=== PATIENT | male | born 1970 | race Caucasian/White ===

== ENCOUNTER 2017-08-24 21:00 | Inpatient (IN) | payer MEDICARE ==
[~2017-08-24] VITALS: Ht 180.3 cm; Wt 190.1 kg
[~2017-08-24 21:00] MED LIST: ACETAMINOPHEN650 M5 PO; ADVAIR 250-501 EACH INH; ATORVASTATIN CA40 MG PO; AUGMENTIN 875875 MG PO; BUSPIRONE HCL10 MG PO; CEFDINIR300 MG PO; CELEXA20 MG PO; CELEXA40 MG PO; CLARITIN10 MG PO; CLEOCIN HCL150 MG PO; COUMADIN 5 MG TA5 M1 PO; ENOXAPARIN100 MG/1 M SQ; FLEXERIL PO; FOLIC ACID1 MG PO; HUMIRA PSO40 MG/0.8 SQ; HYDROCHLOROTH12.5 M1 PO; HYDROCODON-ACE1 EAC7 PO; HYDROXYZINE HCL25 M1 PO; INCRUSE ELLI62.5 MCG IH; JANUMET XR 1001 EACH PO; K-TAB10 MEQ PO; KEFLEX500 MG PO; KETOCONAZOLE60 GM TP; LANTUS SOL100 UNIT/1 SUBQ; LASIX 40 MG TAB40 M2 PO; LEVAQUIN 500 M500 M2 PO; LISINOPRIL40 MG PO; MAGNESIUM OXID200 MG PO; METFORMIN HCL500 MG PO; METHOTREXATE 22.5 M1 PO; MINOCIN100 MG PO; NASONEX17 GM NASAL; NICOTINE TRANSD21 M1; NICOTINE TRANSD21 M1 TRANSDERM; OTHER MISCELL; PAXIL10 MG; PAXIL40 MG PO; PREDNISONE 10 M10 MG PO; PRILOSEC OTC20 MG PO; PROAIR HFA8.5 GM INH; PROTONIX40 M1 PO; SPIRIVA INH; SYMBICORT160 MCG/4. INH; TRAMADOL 50 MG50 MG PO; VENTOLIN HFA 1818 GM INH; VITAMIN D2000 UNIT PO; XANAX 0.25 MG0.25 MG PO; XANAX 0.5 MG0.5 M1 PO; XANAX 1 MG TABLE1 MG PO; XARELTO20 MG PO
[2017-08-24 21:07] VITALS: BP 135/67
[2017-08-24] MEDS ORDERED: CELEXA10 MG PO (21:16)
[2017-08-24 21:47] LABS: HEMATOCRIT 37.1 % (42.0-52.0); HEMOGLOBIN 12.2 gm/dL (14.0-18.0); MCH 30.2 pg (26.0-34.0); MCHC 32.8 g/dL (28.0-37.0); MCV 92.2 fL (80.0-100.0); MPV 9.5 fl. (7.2-11.1); NUCLEATED RBCS 0 /100WBC; PLATELET COUNT* 91 thou/uL (150-400); RBC 4.02 mil/uL (4.50-6.00); RDW-CV 15.6 % (10.5-14.5); WBC 13.8 thou/uL (4.0-11.0)
[2017-08-24 21:57] LABS: CALCIUM 8.5 mg/dL (8.5-10.1); CREATININE 1.7 mg/dL (0.6-1.3); POTASSIUM 4.2 mmol/L (3.5-5.1)
[2017-08-24 22:02] LABS: ALBUMIN 3.6 g/dL (3.4-5.0); TOTAL BILIRUBIN 1.2 mg/dL (<0.1-1.0); TOTAL PROTEIN 7.5 g/dL (6.4-8.2)
[2017-08-24 22:14] LABS: URINE BILIRUBIN NEGATIVE (Negative); URINE BLOOD NEGATIVE (Negative); URINE CLARITY CLEAR; URINE COLOR YELLOW; URINE GLUCOSE-RANDOM NEGATIVE (Negative); URINE KETONES NEGATIVE (Negative); URINE LEUKOCYTES-REFLEX NEGATIVE (Negative); URINE NITRITE-REFLEX NEGATIVE (Negative); URINE PROTEIN TRACE (Negative); URINE SPECIFIC GRAVITY 1.015 (1.005-1.030)
[2017-08-24 22:50] LABS: INR 1.3; PROTIME 12.2 Seconds (9.20-11.50)
[2017-08-24 23:16] LABS: ABSOLUTE LYMPHOCYTES 1.1 thou/uL (0.8-5.3); ABSOLUTE MONOCYTES 0.7 thou/uL (0.0-1.2); ANISOCYTOSIS Occasional; PLATELET ESTIMATE DECREASED; TOXIC GRANULATION 1+
--- NOTE | 2017-08-24 23:20 | NUR ---
NEW PATIENT FROM THE ER, PLEASANT, WALKER INTO ROOM AND BED BY SELF, IV FLUIDS AND ANTIBIOTICS INFUSING, ABD RED AND WARM, SHOWN CALL LIGHT AND BED CONTROLS, ON AT 5L/NC, WILL MONITOR
[2017-08-24 23:27] VITALS: BP 164/87
[2017-08-25 00:30] VITALS: BP 147/80
[2017-08-25] MEDS ORDERED: VITAMIN D1000 UNI1 PO (00:48)
--- NOTE | 2017-08-25 05:21 | NUR ---
PT SLEPT AT INTERVALS SINCE ADMISSION, ANTIBIOTICS GIVEN AND FLUIDS INFUSED, UP AD ALAN, ON 5L/NC WITH EXTENSION TUBING IN THE BATHROOM, PLEASANT, WORE BIPAP WHILE IN BED, CALL LIGHT IN REACH, WILL CONTINUE TO MONITOR
[2017-08-25 09:15] VITALS: BP 137/58
--- NOTE | 2017-08-25 12:42 | NUR ---
Pt is A&O. Resides at home with his son. Independent with ADLs, drove himself to the hospital. Pt wears home o2, provided through [employer], Pt has a tank in the room for dc. Pt sleeps with a bipap and has a neb. No hx of HH or SNF. Supportive family that is invovled in POC. Pt's goal is to return home once medically stable for dc. Following.
--- NOTE | 2017-08-25 16:25 | NUR ---
PATIENT UP AROUND ROOM AD ALAN WITHOUT DIFFICULTY. IV SL THIS SHIFT, SCHED ABX REMAIN. 02 6L NC REMAINS IN PLACE. ID CONS PLACED, WILL SEE TOMORROW. ABD REMAINS RED AND FIRM. PATIENT REQUESTING TO GO HOME THIS EVENING STATING HE HAS NO ONE TO TAKE CARE OF HIS ANIMALS. DR. GORDILLO NOTIFIED BUT STATED PATIENT WAS NOT GOING TO BE DISCHARGED. PATIENT AWARE AND WILL TRY FAMILY AGAIN LATER.
[2017-08-25 20:15] VITALS: BP 133/77
[2017-08-25 23:30] VITALS: BP 134/76
--- NOTE | 2017-08-26 04:57 | NUR ---
PT SLEPT AT INTERVALS DURING THE NIGHT, UP SBA/AD ALAN TO THE BATHROOM, REMAINS ON 02 AT 5-6L/NC, CPAP ON WHILE SLEEPING, IV ANTIBIOTICS GIVEN, PLEASANT, CALL LIGHT IN REACH, WILL CONTINUE TO MONITOR
[2017-08-26 08:40] VITALS: BP 143/68
--- NOTE | 2017-08-26 16:19 | NUR ---
PATIENT STATING ALL SHIFT HE WANTED TO BE DISCHARGED. PATIENT INFORMED THAT PER ID'S NOTE THIS AM THAT PATIENT WOULD REMAIN ON VANCOMYCIN AND ZOSYN WOULD SOON BE DC'D POSSIBLY. PHOTO TAKEN OF ABD PER PROTOCOL. IV ABX REMAINS INFUSING. PATIENT REMAINS ON 6L NC. PATIENT STATES HE FEELS ABD REDNESS AND SWELLING IS BETTER.
[2017-08-26 16:27] VITALS: BP 133/91
--- NOTE | 2017-08-27 05:42 | NUR ---
PT UP AD ALAN IN ROOM WITH 02 WITHOUT DIFFICULTY. RAC SL, ABX GIVEN ORDERED. TOOK A SHOWER AT HS LAST NIGHT. CPAP ON WHILE SLEEPING OVERNIGHT. HS ACCUCHECK 136, NO INSULIN GIVEN. NO LABS THIS MORNING. ABD OBESE WITH PENDULOUS PANNUS, RED AND SL WARM TO TOUCH. PSORIASIS PATCHES PRESENT SCATTTERED OVER BODY. ABLE TO USE CALL LITE AND MAKE NEEDS KNOWN. HOPEFUL FOR DISCHARGE HOME TODAY.
[2017-08-27 08:15] VITALS: BP 116/59
--- NOTE | 2017-08-27 09:18 | CON ---
[address] [address] CONSULTATION Name: DEBBIE NARANJO Room: [address] IN M.R.#: [id number] Admission: 08/24/17 Attend Phys: Dori Witt Discharge: Date of : 70 Report #: [id number] THIS REPORT FOR: //name// CC: FAM physician/PCP Vitaly Pradhan DATE OF SERVICE: 08/26/2017 ATTENDING PHYSICIAN: Vitaly Pradhan MD CONSULTATION REQUESTED BY: Ananth Arriaza MD REASON FOR CONSULTATION: Abdominal wall cellulitis. HISTORY OF PRESENT ILLNESS: The patient is a 47-year-old morbidly obese white man with longstanding history of severe psoriasis and previous episode of abdominal wall cellulitis, possibly secondary to psoriasis. The patient tells me he is feeling better. Redness and pain of abdominal wall has improved. PAST MEDICAL HISTORY: Diabetes mellitus. Morbid obesity. Obstructive sleep apnea. Severe psoriasis. DRUG ALLERGIES: None listed. MEDICATIONS: The patient is currently on treatment with vancomycin 1250 mg IV every 8 hours, Zosyn 3.375 grams IV every 8 hours. He is also receiving treatment with topical nicotine patches, lisinopril, atorvastatin, budesonide, rivaroxaban, KCl, furosemide, citalopram, albuterol inhalation treatment, buspirone. He has BiPAP at night time for obstructive sleep apnea. SOCIAL HISTORY: The patient had received Humira in the past, but cause him to be immunosuppressed. He did receive another treatment for his plaque psoriasis which made all the plaques fall off and clear. Somehow his insurance is not paying for this now. SOCIAL HISTORY: See H and P, old records. FAMILY HISTORY: See H and P, old records. REVIEW OF SYSTEMS: As above and see H and P. PHYSICAL EXAMINATION: GENERAL: Well-developed, morbidly obese white man. VITAL SIGNS: Temperature maximum 100.4, pulse 62, respirations 16, BP 134/76, height 5 feet 11 inches, weight 419 pounds. HEENMT: Head normocephalic, atraumatic. Mouth: [place] [address] CONSULTATION Name: DEBBIE NARANJO Room: [address] IN [facility].#: [id number] Admission: 08/24/17 Attend Phys: Dori Witt Discharge: Date of : 70 Report #: [id number] NECK: Supple. SKIN: Extensive lesions of psoriasis. LUNGS: Clear. HEART: S1, S2. ABDOMEN: Morbidly obese with extensive lesions of cellulitis of the abdominal wall and some lesions of plaque psoriasis. GENITALIA AND RECTAL: Deferred. EXTREMITIES: Reveal stasis dermatitis and psoriasis lesions on sites. NEUROLOGIC: Grossly within normal limits. LABORATORY DATA: Sodium 138, potassium 4.2, BUN 14, creatinine 1.7, glucose 128, albumin 3.6. Protime 12.3. WBC 13.8, hemoglobin 12.2, platelets 91,000. Urinalysis revealed trace protein, otherwise negative. MICROBIOLOGY DATA: Blood cultures were obtained on admission and they remained negative so far. ASSESSMENT: 1. Abdominal wall cellulitis. 2. Plaque psoriasis. 3. Morbid obesity. 4. Obstructive sleep apnea. SUGGESTIONS: Continue treatment with vancomycin since the likely source and culprit for these cellulitic changes is either the streptococcus or Staphylococcus. Could possibly discontinue Zosyn. Dr. Arriaza, thank you for requesting my suggestions in the care of your patient. <ELECTRONICALLY SIGNED> By: Juanito Bardales MD 08/27/17 0918 0833 1141Guillermivy Bardales MD /nt
[2017-08-27] MEDS ORDERED: NYAMYC15 GM TOP (10:41)
[2017-08-27 11:32] LABS: HEMATOCRIT 33.1 % (42.0-52.0); MCH 30.6 pg (26.0-34.0); MCHC 33.1 g/dL (28.0-37.0); MCV 92.5 fL (80.0-100.0); MPV 10.9 fl. (7.2-11.1); RBC 3.57 mil/uL (4.50-6.00); RDW-CV 15.7 % (10.5-14.5); WBC 7.2 thou/uL (4.0-11.0)
[2017-08-27 11:47] LABS: CALCIUM 8.5 mg/dL (8.5-10.1); CREATININE 1.3 mg/dL (0.6-1.3); MAGNESIUM 1.7 mg/dL (1.8-2.4)
--- NOTE | 2017-08-27 12:01 | NUR ---
Nutrition: Consult received for "wound." Pt is obese, Wt 419#. Eating CHO controlled diet well. Wants to go home. RX: lisinopril, lasix, albuterol. BG 115-218, albumin 3.6. General abd cellulitis. Pt discharging today. No nutritional interventions needed before discharge.
[2017-08-27 13:04] VITALS: BP 116/59
[2017-08-27 14:30] VITALS: BP 116/59
--- NOTE | 2017-08-27 14:51 | NUR ---
PT VSS THIS SHIFT. PT UP AD ALAN THIS SHIFT. PT TOLERATING 5L O2 THIS SHIFT AND APPROPRIATELY USES CPAP THIS SHIFT. HOURLY ROUNDING MAINTAINED. PT PAIN IS TOLERABLE THIS SHIFT. PT VERBALIZED UNDERSTANDING OF DISCHARGE MEDICATIONS AND INSTRUCTIONS. PT GIVEN 3 RX AT DISCHARGE. PT TAKEN VIA WHEELCHAIR UPON DISCHARGE.
[2017-12-22] MEDS ORDERED: ALPRAZOLAM 0.50.5 M1 PO (01:47)
== END 2017-08-27 14:30 | disposition home or self-care (01) | DRG 602 ==
LOC: M.ERS 21:00 → M.3W 22:23 → M.TBA-ER 22:23 → M.3W 23:43
PROVIDERS: Internal Medicine; Nurse Practitioner Family; ADMIT Internal Medicine
PROC: 5A09357 Assistance with Respiratory Ventilation, Less than 24 Consecutive Hours, Continuous Positive Airway Pressure (ICD-10-PCS; principal; 2017-08-24)
DX: L03.311 Cellulitis of abdominal wall (principal); N17.0 Acute kidney failure with tubular necrosis; Z68.43 Body mass index [BMI] 50.0-59.9, adult; R65.10 Systemic inflammatory response syndrome (SIRS) of non-infectious origin without acute organ dysfunction; J96.10 Chronic respiratory failure, unspecified whether with hypoxia or hypercapnia; I12.9 Hypertensive chronic kidney disease with stage 1 through stage 4 chronic kidney disease, or unspecified chronic kidney disease; N18.2 Chronic kidney disease, stage 2 (mild); E11.9 Type 2 diabetes mellitus without complications; L40.0 Psoriasis vulgaris; J44.9 Chronic obstructive pulmonary disease, unspecified; F41.9 Anxiety disorder, unspecified; F32.9 Major depressive disorder, single episode, unspecified; E78.00 Pure hypercholesterolemia, unspecified; E66.01 Morbid (severe) obesity due to excess calories; G47.33 Obstructive sleep apnea (adult) (pediatric); Z86.711 Personal history of pulmonary embolism; Z86.718 Personal history of other venous thrombosis and embolism; Z79.899 Other long term (current) drug therapy; Z99.81 Dependence on supplemental oxygen

== ENCOUNTER 2017-12-10 02:49 | Emergency (ER) | payer MEDICARE ==
[~2017-12-10] VITALS: Ht 180.3 cm; Wt 174.6 kg
[~2017-12-10 02:49] MED LIST changes: +CELEXA10 MG PO; +NYAMYC15 GM TOP; +VITAMIN D1000 UNI1 PO
[2017-12-10 02:58] VITALS: BP 182/93
[2017-12-10] MEDS ORDERED: ESCITALOPRAM OX20 MG PO (03:05)
[2017-12-10] MEDS ORDERED: NEURONTIN 300300 M1 PO (03:06)
[2017-12-10] MEDS ORDERED: AMOXICILLIN875 MG PO (03:11)
[2017-12-10] MEDS ORDERED: NORCO 7.5-3251 EACH PO (03:11)
[2017-12-22] MEDS ORDERED: ALPRAZOLAM 0.50.5 M1 PO (01:47)
== END 2017-12-10 03:19 | disposition home or self-care (01) ==
LOC: M.ERS 02:49
DX: K02.9 Dental caries, unspecified (principal); L40.9 Psoriasis, unspecified; J44.9 Chronic obstructive pulmonary disease, unspecified; G47.30 Sleep apnea, unspecified; F41.9 Anxiety disorder, unspecified; F32.9 Major depressive disorder, single episode, unspecified; E11.9 Type 2 diabetes mellitus without complications; E78.00 Pure hypercholesterolemia, unspecified; F17.210 Nicotine dependence, cigarettes, uncomplicated

== ENCOUNTER 2018-03-07 10:54 | Inpatient (IN) | payer MEDICARE ==
[~2018-03-07] VITALS: Ht 180.3 cm; Wt 179.6 kg
--- NOTE | ~2018-03-07 | CON ---
[address] [address] CONSULTATION Name: DEBBIE NARANJO Room: [address] IN M.R.#: [id number] Admission: 03/07/18 Attend Phys: Danilo Stark MD Discharge: Date of : 70 Report #: [id number] THIS REPORT FOR: //name// CC: SHELBI Stark Physician staff DATE OF SERVICE: 03/08/2018 PRIMARY CARE DOCTOR: At [facility]. CHIEF COMPLAINT: Chest pain and abnormal troponin. HISTORY OF PRESENT ILLNESS: The patient is a 48-year-old man with a history of chronic coagulopathy and COPD, who presented with severe onset of resting chest discomfort. In the Emergency Room, his EKG demonstrated a nonspecific flattening of his ST segments without ST segment elevation, but because of his risk factors which are significant, he was admitted. His subsequent cardiac troponin levels were abnormal and peaked at 11. He had remained chest pain free since admission. This morning, he is chest pain free. He has chronic shortness of breath and has an oxygen requirement. He is an active smoker and has COPD and uses oxygen. He has no documented history of heart disease, but again has numerous cardiovascular risk factors including coagulopathy, active smoking, high blood pressure, diabetes mellitus type 2 as well as a lipid status, which is not known. He receives most of his care at [facility]. PAST MEDICAL HISTORY: He was diagnosed with a coagulopathy as he has 2 separate episodes of DVT and pulmonary embolus. He is anticoagulated with Xarelto. His last dose was yesterday afternoon. He has a history of chronic cellulitis. He is morbidly obese. He has a history of a stress test at [facility], he thinks more than 2 years ago, which was reportedly normal. He has hypertension and in the past has had hypertensive urgency episodes. He has COPD. He has had cellulitis in the past. HOME MEDICATIONS: Include atorvastatin 80 mg daily, lisinopril 40 mg daily, Lasix 40 mg alternating 40 and 80 mg daily, metformin 500 mg p.o. b.i.d., Xarelto 20 mg daily, which he usually takes at dinnertime. He has sleep apnea. He has a questionable history of heart murmur. SOCIAL HISTORY: He is a qyk-[id number]-half pack per day smoker, daily. He does drink weekly. [place] [address] CONSULTATION Name: DEBBIE NARANJO Room: [address]#: [id number] Admission: 03/07/18 Attend Phys: Danilo Stark MD Discharge: Date of : 70 Report #: [id number] FAMILY HISTORY: Negative for sudden . Positive for hypertension. REVIEW OF SYSTEMS: GASTROINTESTINAL: No nausea, vomiting, hematemesis or melena. GENITOURINARY: No dysuria or hematuria. MUSCULOSKELETAL: Positive leg swelling. No joint pain or joint swelling. CARDIOVASCULAR: Positive chest pain, positive dyspnea on exertion, positive orthopnea, positive PND. HEMATOLOGIC: No anemia or bleeding disorders, but has positive coagulopathy. ENDOCRINE: Positive diabetes, positive hyperlipidemia. PHYSICAL EXAMINATION: VITAL SIGNS: Blood pressure is 125/47, pulse is 77, temperature is 36.8, respiratory rate is 20, O2 3-4 liters is 95%. GENERAL: He is an alert and oriented, morbidly obese, middle-aged male. HEENT: There is no evidence of trauma. Eyes, EOMs are intact. No facial asymmetry. NECK: Supple. No jugular venous distention. Upstrokes are normal. CARDIOVASCULAR: Regular. I could hear a faint systolic murmur. LUNGS: Diminished breath sounds bilaterally. ABDOMEN: Soft, nontender. EXTREMITIES: There is 1-2+ pretibial edema with some brawny edema. This is focal and symmetric. NEUROLOGIC: There are no focal deficits. Electrocardiogram x 2 performed yesterday demonstrated sinus rhythm, poor R-wave progression and nonspecific flattening of T-waves. LABORATORY DATA: As noted above, his troponin I on presentation was 0.07 and then subsequent lab 4 hours later was 9.13 and then another hour after that apparently was 11.5. Chest x-ray shows cardiomegaly, but no significant infiltrates, small effusions. Hemoglobin is 13.4, white blood cell count is 9.9, platelet count is 93,000. INR is 1.3 on presentation. IMPRESSION: 1. Non-ST elevation myocardial infarction. The patient has numerous cardiovascular risk factors and episode of resting chest discomfort. There was no ST segment elevation on his ECG, but his troponin is abnormal. His clinical scenario is compatible with an ACS. He has been started on IV heparin and we have held his Xarelto. He currently remains chest pain free. We will plan for a cardiac catheterization, the timing of which will need to be determined as of yet, he has only been off his Xarelto for less than 24 hours. 2. Chronic obstructive pulmonary disease. He is oxygen requiring and has morbid obesity as well as sleep apnea. It does not appear that he is an active left-sided heart failure, but he may require a diuretic. [address] [place] [address] CONSULTATION Name: DEBBIE NARANJO Room: [address] IN [facility].#: [id number] Admission: 03/07/18 Attend Phys: Danilo Stark MD Discharge: Date of : 70 Report #: [id number] 3. Hypertension. We will continue with his MONIKA inhibitor. We may consider starting him on a selective beta radha. 4. Hyperlipidemia. We will check lipids and treat accordingly. He is currently on high dose statin appropriately. 5. Tobacco abuse. Cessation was recommended. He will be placed on protocol. 6. Coagulopathy. We have temporarily discontinued his Xarelto, but it will need to be reinitiated at some point before discharge along with an antiplatelet strategy. 7. Diabetes per hospitalist protocol. By: [id number] Keith MD, FACC /nt
[~2018-03-07 10:54] MED LIST changes: +ALPRAZOLAM 0.50.5 M1 PO; +AMOXICILLIN875 MG PO; +ESCITALOPRAM OX20 MG PO; +NEURONTIN 300300 M1 PO; +NORCO 7.5-3251 EACH PO
[2018-03-07 11:00] VITALS: BP 165/79
[2018-03-07 11:14] LABS: ABSOLUTE BASOPHILS 0.1 thou/uL (0.0-0.2); ABSOLUTE EOSINOPHILS 0.3 thou/uL (0.0-0.7); ABSOLUTE LYMPHOCYTES 1.8 thou/uL (0.8-5.3); ABSOLUTE MONOCYTES 0.7 thou/uL (0.0-1.2); ABSOLUTE NEUTROPHILS 7.1 thou/uL (1.6-8.1); BASOPHILS 0.8 %; EOSINOPHILS 2.6 %; HEMATOCRIT 40.5 % (42.0-52.0); HEMOGLOBIN 13.4 gm/dL (14.0-18.0); LYMPHOCYTES 17.9 %; MCH 30.1 pg (26.0-34.0); MCHC 33.1 g/dL (28.0-37.0); MCV 90.9 fL (80.0-100.0); MONOCYTES 6.9 %; MPV 10.7 fl. (7.2-11.1); NUCLEATED RBCS 0 /100WBC; POLYS 71.8 %; RBC 4.46 mil/uL (4.50-6.00); RDW-CV 16.6 % (10.5-14.5); WBC 9.9 thou/uL (4.0-11.0)
[2018-03-07 11:22] LABS: CALCIUM 9.1 mg/dL (8.5-10.1); CREATININE 1.4 mg/dL (0.6-1.3)
[2018-03-07 11:24] LABS: APTT 60.6 Seconds (25.0-31.3); INR 1.3
[2018-03-07 11:40] LABS: ALBUMIN 3.8 g/dL (3.4-5.0); CK-MB MASS 2.2 ng/mL (<0.5-3.6); MAGNESIUM 1.8 mg/dL (1.8-2.4); TOTAL BILIRUBIN 0.8 mg/dL (<0.1-1.0); TOTAL PROTEIN 8.1 g/dL (6.4-8.2); TROPONIN-I LEVEL 0.07 ng/mL (<0.06)
[2018-03-07 12:00] VITALS: BP 144/92
[2018-03-07 12:02] LABS: PLATELET COUNT* 93 thou/uL (150-400)
[2018-03-07 13:04] VITALS: BP 174/87
[2018-03-07 16:00] VITALS: BP 165/71
[2018-03-07 20:05] VITALS: BP 161/71
[2018-03-08] VITALS (18 sets, daily range): BP systolic 79–183; BP diastolic 41–93
[2018-03-08 11:07] LABS: CHOLESTEROL 92 mg/dL (<200); HDL CHOLESTEROL 34 mg/dL (>40); LDL CHOLESTEROL 41 mg/dL (<100); TC:HDL 2.7 Ratio (Not establshd); TRIGLYCERIDE 86 mg/dL (<150); VLDL 17 mg/dL (<40)
[2018-03-08 11:10] LABS: SERUM ASSESSMENT Clear
--- NOTE | 2018-03-08 12:33 | EKG ---
[place] [address] ELECTROCARDIOGRAM REPORT Name: DEBBIE NARANJO Room: [address] ADM IN M.R.#: [id number] Admission: 03/07/18 Attend Phys: Danilo Stark MD Discharge: Date of : 70 Report #: [id number] THIS REPORT FOR: //name// [facility] ED Test Date: 2018-03-07 Test Time: 10:59:01 Pat Name: DEBBIE NARANJO Department: Room: [address] Gender: M Salvage Determiner: : 1970 Requested By: Lee Chong Order Number: [id number] Reading MD: Thomas Keith Measurements Intervals [place] Rate: 91 P: 36 [place]: 152 QRS: 4 QRSD: 97 T: 90 QT: 364 QTc: 448 Interpretive Statements Sinus rhythm Baseline wander in lead(s) I,aVR,aVL Compared to ECG 12/21/2017 23:41:45 Left ventricular hypertrophy no longer present Early repolarization no longer present Electronically Signed On 03-08-2018 12:33:00 CAPTAIN FIRE PRE[employer]ION [employer]AU by Thomas Keith [email or web address] <ELECTRONICALLY SIGNED> By: Thomas Keith MD, FACC 03/08/18 1233 1059 1059 Thomas Keith MD, FAC /EPI
--- NOTE | 2018-03-08 12:33 | EKG ---
[place] [address] ELECTROCARDIOGRAM REPORT Name: DEBBIE NARANJO Room: [address] ADM IN M.R.#: [id number] Admission: 03/07/18 Attend Phys: Danilo Stark MD Discharge: Date of : 70 Report #: [id number] THIS REPORT FOR: //name// [facility] ED Test Date: 2018-03-07 Test Time: 12:02:47 Pat Name: DEBBIE NARANJO Department: Room: [facility] Gender: Aba Tutor: Claire RIVERA : 1970 Requested By: Lee Chong Order Number: [id number] MD: Thomas Keith Measurements Intervals [place] Rate: 75 P: 42 ME: 151 QRS: 8 QRSD: 99 T: 86 QT: 412 QTc: 461 Interpretive Statements Sinus rhythm Inferior infarct, acute (RCA) Minimal ST elevation, anterior leads Lateral leads are also involved Probable RV involvement, suggest recording right precordial leads Compared to ECG 12/21/2017 23:41:45 Myocardial infarct finding now present ST (T wave) deviation now present Left ventricular hypertrophy no longer present Early repolarization no longer present Electronically Signed On 03-08-2018 12:33:02 TRACTOR OPERATOR by Thomas Keith [email or web address] <ELECTRONICALLY SIGNED> By: Thomas Keith MD, FACC 03/08/18 1233 1202 1202 Thomas Keith MD, [facility] /EPI
--- NOTE | 2018-03-08 14:19 | CARD ---
[address] [address] CARDIAC CATH REPORT Name: DEBBIE NARANJO Room: 229-P ADM IN M.R.#: [id number] Admission: 03/07/18 Attend Phys: Danilo Stark MD Discharge: Date of : 70 Report #: [id number] THIS REPORT FOR: //name// APPROVED REPORT Study performed: 03/08/2018 10:53:16 Patient Details Patient Status: In-Patient Room #: 229 The patient is a 48 year-old male Event Personnel Malik Sánchez Hand Ii Blocker, Damaris Conte RN City Wellness Coordinator, Natalie Jones RTR Monitor, Francesca Ríos Scrub Procedures Performed Art Access - R radial artery Left Heart Cath w/or w/o Coronaries LHC; ascending aortography Indication Non-STEMI Risk Factors Obesity, Hypercholesterolemia, Hypertension Admission/Lab Medications/Medications given during procedure Heparin Unfract. Procedure Narrative The patient was brought electively to the Cardiac Catheterization Laboratory and was prepped and draped in a sterile manner. The right wrist was infiltrated with 2% Lidocaine subcutaneous anesthesia. A Slender Glidesheath sheath was inserted into the right radial artery. Coronary angiography was performed using coronary diagnostic catheters. The right coronary system was accessed and visualized with a Diagnostic 6Fr AR 1 MOD catheter. The left coronary system was accessed and visualized with a Diagnostic 6Fr JL3.5Tiger 4.0 6fr catheter. The left ventricle was accessed and visualized with a Diagnostic 6Fr angled pigtail catheter. Left ventricular/Aortic Valve gradient assessed via catheter pullback. Left ventriculogram was performed in HASSAN projection. An aortogram of the ascending aorta was performed. The patient tolerated the procedure well and there were no complications associated with the procedure. [place] [address] CARDIAC CATH REPORT Name: BRADFORDDEBBIE Hare Room: [address] IN .R.#: [id number] Admission: 03/07/18 Attend Phys: Danilo Stark MD Discharge: Date of : 70 Report #: [id number] Intraoperative Conscious Sedation Sedation start time: 11:43 Case end Time: 12:39 Fentanyl 25 mcg Versed 1 mg Fluoro Time: 20.0 minutes Dose: DAP 790306 cGycm2 3926 mGy Contrast Type and Amount: Visipaque 290 ml Coronary Angiography The patient's coronary anatomy is right dominant. Diagnostic Cath Left Main 0% narrowing LAD Prominent vessel with 20% mid and distal narrowing Circumflex Nondominant vessel with 0% narrowing Right Coronary Dominant vessel with mild aneurysmal dilatation of the midportion followed by 20% narrowing Left Ventriculography The left ventricle is normal in size with normal contractility. The left ventricular ejection fraction is estimated to be 60%. There is no mitral insufficiency. There is a question of mild apical hypokinesis; ascending aortography demonstrated moderate dilatation of the ascending aorta above the root with calcification and moderate reduction in cusp excursion; there was moderate, 2+ / 4+, aortic insufficiency noted Hemodynamics The aortic pressure is 131/84 mmHg with a mean of 104 mmHg. The left ventricular pressure is 174/18 mmHg with a mean of mmHg. The left ventricular end diastolic pressure is 41 mmHg. Pullback from the left ventricle to the aorta revealed a 50 mm gradient across the aortic valve. Conclusion #1 modest coronary artery disease characterized by the following: A normal left main coronary artery and nondominant circumflex B 20% narrowings of the mid and distal portions of the prominent left anterior descending coronary artery C dominant right coronary artery with [place] [address] CARDIAC CATH REPORT Name: BRADFORDDEBBIE Hare Room: [address] IN [facility].#: [id number] Admission: 03/07/18 Attend Phys: Danilo Stark MD Discharge: Date of : 70 Report #: [id number] the midportion followed by 20% narrowing #2 normal left ventricular systolic function, estimated ejection fraction being 60% with a question of mild apical hypokinesis #3 moderate systemic systolic hypertension with severe elevation of left ventricular end-diastolic pressure at rest #4 peak to peak transaortic valve systolic pressure gradient of 50 mmHg on direct pullback #5 ascending aortography demonstrated moderate dilatation of the ascending aorta above the root with calcification and moderate reduction in cusp excursion; there is moderate, 2+ / 4+, aortic insufficiency noted Recommendations Cardiac Risk Reduction Program Weight Loss Reduction Program Diagnostic Cath Approved by: Malik Sánchez MD Date/Time: 03/08/2018 14:15:50 <ELECTRONICALLY SIGNED> By: Malik Sánchez MD, [facility] 03/08/18 1419 1419 1419Malik Sánchez MD, [facility] /INF
[2018-03-09] VITALS: BP 121/62
[2018-03-09 04:00] VITALS: BP 131/56
[2018-03-09 05:03] LABS: ABSOLUTE BASOPHILS 0.1 thou/uL (0.0-0.2); ABSOLUTE EOSINOPHILS 0.2 thou/uL (0.0-0.7); ABSOLUTE LYMPHOCYTES 1.7 thou/uL (0.8-5.3); ABSOLUTE MONOCYTES 0.7 thou/uL (0.0-1.2); ABSOLUTE NEUTROPHILS 6.1 thou/uL (1.6-8.1); BASOPHILS 0.6 %; EOSINOPHILS 2.4 %; HEMATOCRIT 38.2 % (42.0-52.0); HEMOGLOBIN 12.3 gm/dL (14.0-18.0); LYMPHOCYTES 19.4 %; MCH 29.2 pg (26.0-34.0); MCHC 32.2 g/dL (28.0-37.0); MCV 90.7 fL (80.0-100.0); MONOCYTES 8.4 %; NUCLEATED RBCS 0 /100WBC; PLATELET COUNT* 93 thou/uL (150-400); POLYS 69.2 %; RBC 4.21 mil/uL (4.50-6.00); RDW-CV 16.4 % (10.5-14.5); WBC 8.8 thou/uL (4.0-11.0)
[2018-03-09 05:10] LABS: CALCIUM 9.1 mg/dL (8.5-10.1); CREATININE 1.1 mg/dL (0.6-1.3)
[2018-03-09 08:20] VITALS: BP 122/71
--- NOTE | 2018-03-09 11:35 | EKG ---
[place] [address] ELECTROCARDIOGRAM REPORT Name: DEBBIE NARANJO Room: [address] ADM IN M.R.#: [id number] Admission: 03/07/18 Attend Phys: Danilo Stark MD Discharge: Date of : 70 Report #: [id number] THIS REPORT FOR: //name// [facility] Test Date: 2018-03-07 Test Time: 19:14:29 Pat Name: DEBBIE NARANJO Department: Room: [address] Gender: M Content Producer: : 1970 Requested By: Lee Chong Order Number: [id number] Reading MD: Thomas Keith Measurements Intervals [place] Rate: 78 P: 40 [place]: 151 QRS: -10 QRSD: 96 T: 17 QT: 406 QTc: 463 Interpretive Statements Sinus rhythm Left ventricular hypertrophy Compared to ECG 03/07/2018 12:02:47 Left ventricular hypertrophy now present Myocardial infarct finding no longer present ST (T wave) deviation no longer present Electronically Signed On 03-09-2018 11:34:51 CHIMNEY BUILDER HELPER by Thomas Keith [email or web address] <ELECTRONICALLY SIGNED> By: Thomas Keith MD, FACC 03/09/18 1134 13 13 Thomas Keith MD, FAC /EPI
--- NOTE | 2018-03-09 11:36 | EKG ---
[place] [address] ELECTROCARDIOGRAM REPORT Name: DEBBIE NARANJO Room: [address] ADM IN M.R.#: [id number] Admission: 03/07/18 Attend Phys: Danilo Stark MD Discharge: Date of : 70 Report #: [id number] THIS REPORT FOR: //name// [facility] Test Date: 2018-03-08 Test Time: 00:25:55 Pat Name: DEBBIE NARANJO Department: Room: [address] Gender: M Semiconductor Bonder: : 1970 Requested By: Lee Chong Order Number: [id number] Reading MD: Thomas Keith Measurements Intervals [place] Rate: 75 P: 47 ME: 149 QRS: -8 QRSD: 95 T: -46 QT: 367 QTc: 410 Interpretive Statements Sinus rhythm Nonspecific T abnormalities, lateral leads Baseline wander in lead(s) V1,V2 Compared to ECG 03/07/2018 12:02:47 T-wave abnormality now present Myocardial infarct finding no longer present ST (T wave) deviation no longer present Electronically Signed On 03-09-2018 11:35:56 [employer]AD[employer] WORK[employer] by Thomas Keith [email or web address] <ELECTRONICALLY SIGNED> By: Thomas Keith MD, FACC 03/09/18 1135 0025 0025 Thomas Keith MD, FACC /EPI
[2018-03-09 12:00] VITALS: BP 144/76
[2018-03-09 16:22] VITALS: BP 144/76
[2018-03-09] MEDS ORDERED: ASPIR 8181 M1 PO (16:32)
== END 2018-03-09 17:25 | disposition home or self-care (01) | DRG 280 ==
LOC: M.ERS 10:54 → M.TBA-ER 12:09 → M.2W 12:09
PROVIDERS: Family Medicine; Internal Medicine; Internal Medicine Cardiovascular Disease
DX: I21.4 Non-ST elevation (NSTEMI) myocardial infarction (principal); I50.21 Acute systolic (congestive) heart failure; J96.11 Chronic respiratory failure with hypoxia; Z68.45 Body mass index [BMI] 70 or greater, adult; D68.9 Coagulation defect, unspecified; I13.0 Hypertensive heart and chronic kidney disease with heart failure and stage 1 through stage 4 chronic kidney disease, or unspecified chronic kidney disease; I50.9 Heart failure, unspecified; E78.5 Hyperlipidemia, unspecified; N18.9 Chronic kidney disease, unspecified; G47.33 Obstructive sleep apnea (adult) (pediatric); I25.10 Atherosclerotic heart disease of native coronary artery without angina pectoris; J44.9 Chronic obstructive pulmonary disease, unspecified; F41.9 Anxiety disorder, unspecified; F32.9 Major depressive disorder, single episode, unspecified; F17.210 Nicotine dependence, cigarettes, uncomplicated; E66.01 Morbid (severe) obesity due to excess calories; Z99.81 Dependence on supplemental oxygen; Z86.711 Personal history of pulmonary embolism; Z86.718 Personal history of other venous thrombosis and embolism; Z79.01 Long term (current) use of anticoagulants; Z79.84 Long term (current) use of oral hypoglycemic drugs; Z79.899 Other long term (current) drug therapy; Z82.49 Family history of ischemic heart disease and other diseases of the circulatory system; Z71.6 Tobacco abuse counseling

== ENCOUNTER 2018-03-18 12:46 | Inpatient (IN) | payer MEDICARE, OTHER, MEDICAID ==
[~2018-03-18] VITALS: Ht 180.3 cm; Wt 172.3 kg
[~2018-03-18 12:46] MED LIST changes: +ASPIR 8181 M1 PO
[2018-03-18 13:13] LABS: ABSOLUTE BASOPHILS 0.1 thou/uL (0.0-0.2); ABSOLUTE EOSINOPHILS 0.1 thou/uL (0.0-0.7); ABSOLUTE LYMPHOCYTES 1.9 thou/uL (0.8-5.3); ABSOLUTE MONOCYTES 0.9 thou/uL (0.0-1.2); ABSOLUTE NEUTROPHILS 6.7 thou/uL (1.6-8.1); BASOPHILS 1.4 %; EOSINOPHILS 1.4 %; HEMATOCRIT 38.2 % (42.0-52.0); HEMOGLOBIN 12.5 gm/dL (14.0-18.0); LYMPHOCYTES 19.2 %; MCH 29.3 pg (26.0-34.0); MCHC 32.8 g/dL (28.0-37.0); MCV 89.2 fL (80.0-100.0); MONOCYTES 9.6 %; NUCLEATED RBCS 0 /100WBC; PLATELET COUNT* 129 thou/uL (150-400); POLYS 68.4 %; RBC 4.28 mil/uL (4.50-6.00); WBC 9.7 thou/uL (4.0-11.0)
[2018-03-18 13:18] LABS: APTT 42.4 Seconds (25.0-31.3); INR 1.1; PROTIME 11.4 Seconds (9.20-11.50)
[2018-03-18 13:24] LABS: CALCIUM 8.9 mg/dL (8.5-10.1); CREATININE 1.2 mg/dL (0.6-1.3); POTASSIUM 4.4 mmol/L (3.5-5.1); TROPONIN-I LEVEL 0.14 ng/mL (<0.06)
--- NOTE | 2018-03-18 15:46 | EKG ---
[place] [address] ELECTROCARDIOGRAM REPORT Name: LAURAGIOVANNIAnanyaDEBBIE IGNACIO Room: [address] ADM IN .R.#: [id number] Admission: 03/18/18 Attend Phys: Augustin Arellano MD, F Discharge: Date of : 70 Report #: [id number] THIS REPORT FOR: //name// [facility] ED Test Date: 2018-03-18 Test Time: 12:51:42 Pat Name: DEBBIE NARANJO Department: Room: [facility] Gender: M Deburring Machine Operator: TP : 1970 Requested By: Laly Guo Order Number: [id number] MD: Augustin Arellano Measurements Intervals [place] Rate: 106 P: 60 NC: 161 QRS: 2 QRSD: 101 T: 88 QT: 332 QTc: 441 Interpretive Statements Sinus tachycardia Anterolateral infarct, acute (LAD) Baseline wander in lead(s) I,II,aVR Compared to ECG 03/08/2018 00:25:55 Myocardial infarct finding now present Sinus rhythm no longer present Electronically Signed On 03-18-2018 15:46:07 GROMMET MACHINE OPERATOR by Augustin Arellano [email or web address] <ELECTRONICALLY SIGNED> By: Augustin Arlelano MD, FACC 03/18/18 1546 1251 1251 Augustin Arellano MD, FAC /EPI
[2018-03-18 16:19] LABS: BE 0.3 mmol/L (-2 to +3); HCO3 34.1 mmol/L (22.0-26.0)
[2018-03-18 16:20] LABS: PCO2 121.8 mmHg (35.0-45.0); pH 7.065 (7.340-7.450)
[2018-03-18 16:21] LABS: PO2 190.4 mmHg (75.0-100.0)
[2018-03-18 16:56] LABS: CALCIUM 8.8 mg/dL (8.5-10.1); CREATININE 1.5 mg/dL (0.6-1.3); POTASSIUM 4.8 mmol/L (3.5-5.1)
--- NOTE | 2018-03-18 17:42 | CARD ---
[address] [address] CARDIAC CATH REPORT Name: DEBBIE NARANJO Room: [address] IN ..#: [id number] Admission: 03/18/18 Attend Phys: Floyd Hair MD Discharge: Date of : 70 Report #: [id number] THIS REPORT FOR: //name// APPROVED REPORT Study performed: 03/18/2018 12:48:41 Patient Details Patient Status: In-Patient Room #: The patient is a 48 year-old male Event Personnel Augustin Arellano Negotiator, Radha Warner RN Marketing Support Assistant, Natalie Jones RTR Monitor, Francesca Ríos Scrub Procedures Performed cath pci Indication Abnormal ECG, STEMI , Dyspnea, Chest pain Risk Factors Obesity, Hypertension, Tobacco History () Admission/Lab Medications/Medications given during procedure Glycoprotein IllbIlla Inhibitors, Heparin Unfract. Procedure Narrative The patient was brought emergently to the Cardiac Catheterization Laboratory and was prepped and draped in a sterile manner. The right wrist was infiltrated with 1% Lidocaine subcutaneous anesthesia. A Slender Glidesheath sheath was inserted into the right radial artery. Coronary angiography was performed using coronary diagnostic catheters. The right coronary system was accessed and visualized with a Diagnostic 6Fr JR4 catheter. The left coronary system was accessed and visualized with a Diagnostic 6Fr JL 5 catheter. The left ventricle was accessed and visualized with a diagnostic catheter. Left ventricular/Aortic Valve gradient assessed via catheter pullback. Closure device was deployed with a 6 Fr vascband. There was no hematoma. After the procedure, the patient complained of increasing shortness of breath. The patient became unresponsive and bradycardic. Danielle Blue was called, and the patient was intubated for respiratory failure. The patient was [place] [address] CARDIAC CATH REPORT Name: SURJIT NARANJOHENRIK PIERRE Room: [address] IN .R.#: [id number] Admission: 03/18/18 Attend Phys: Floyd Hair MD Discharge: Date of : 70 Report #: [id number] ventilator with stable vital signs. Intraoperative Conscious Sedation Sedation start time: 1316 Case end Time: 1356 no sedation gvien. Coronary Angiography The patient's coronary anatomy is co- dominant. Diagnostic Cath Left Main 0% stenosis LAD apical lad occluded Circumflex 0% stenosis Right Coronary 40% proximal stenosis Left Ventriculography Left Ventriculography was not performed. Hemodynamics The aortic pressure is 129/88 mmHg with a mean of 97 mmHg. The left ventricular pressure is 190/27 mmHg with a mean of mmHg. The left ventricular end diastolic pressure is 30 mmHg. Pullback from the left ventricle to the aorta revealed a 40 mm gradient across the aortic valve. PCI Technique Lesion Anticoagulation was achieved with Heparin. Percutaneous coronary intervention was performed on the distal left anterior descending artery segment. The lesion stenosis prior to intervention was 100% with JOANN 0 flow. A xblad4.5 Guide Catheter was used to engage the lm ostium. A bmw Interventional Guidewire was used to cross the lesion. BALLOON DILATION wire was able to be advanced to the distal lad, but could not be advanced beyond the occlusion. Further efforts at reperfusion were abandoned. Final angiography reveals 100 % stenosis with JOANN 0 flow. Conclusion 1. acute occlusion of the distal lad 2. wire could not be advanced beyond the occlusion and additional efforts at reperfusion were abandoned 3. the patient developed respiratory failure [place] [address] CARDIAC CATH REPORT Name: DEBBIE NARANJO Room: [address] IN [facility].#: [id number] Admission: 03/18/18 Attend Phys: Floyd Hair MD Discharge: Date of : 70 Report #: [id number] procedure, and required oral intubation 4. mild aortic stenosis Recommendations Cardiac Rehabilitation Referral Aggressive Medical Therapy <ELECTRONICALLY SIGNED> By: Augustin Arellano MD, [facility] 03/18/181741 41 Dgeneva Arellano MD, FACC /INF
[2018-03-18 18:16] LABS: BE -0.8 mmol/L (-2 to +3); HCO3 30.9 mmol/L (22.0-26.0); PO2 82.2 mmHg (75.0-100.0)
[2018-03-18 18:17] LABS: PCO2 93.8 mmHg (35.0-45.0); pH 7.136 (7.340-7.450)
[2018-03-18 22:30] VITALS: BP 119/65
[2018-03-18 23:30] VITALS: BP 118/49
[2018-03-19] VITALS (21 sets, daily range): BP systolic 89–125; BP diastolic 49–77
[2018-03-19 03:02] LABS: HEMATOCRIT 38.1 % (42.0-52.0); HEMOGLOBIN 12.4 gm/dL (14.0-18.0); MCH 29.6 pg (26.0-34.0); MCHC 32.5 g/dL (28.0-37.0); MPV 10.6 fl. (7.2-11.1); RBC 4.19 mil/uL (4.50-6.00); RDW-CV 15.8 % (10.5-14.5); WBC 14.5 thou/uL (4.0-11.0)
[2018-03-19 03:14] LABS: ALBUMIN 3.4 g/dL (3.4-5.0); ALKALINE PHOSPHATASE 79 U/L (46-116); ANION GAP 1 mmol/L (7-16); BUN 23 mg/dL (7-18); CALCIUM 8.1 mg/dL (8.5-10.1); CHLORIDE 100 mmol/L (98-107); CHOLESTEROL 106 mg/dL (<200); CO2 38 mmol/L (21-32); CREATININE 1.4 mg/dL (0.6-1.3); GLUCOSE 157 mg/dL (70-99); HDL CHOLESTEROL 40 mg/dL (>40); LDL CHOLESTEROL 47 mg/dL (<100); MAGNESIUM 1.9 mg/dL (1.8-2.4); POTASSIUM 5.4 mmol/L (3.5-5.1); SGOT 417 U/L (15-37); SGPT 98 U/L (30-65); SODIUM 139 mmol/L (136-145); TC:HDL 2.7 Ratio (Not establshd); TOTAL BILIRUBIN 0.7 mg/dL (<0.1-1.0); TOTAL PROTEIN 7.4 g/dL (6.4-8.2); TRIGLYCERIDE 97 mg/dL (<150); VLDL 19 mg/dL (<40)
[2018-03-19 03:20] LABS: SERUM ASSESSMENT Clear
[2018-03-19 03:49] LABS: TROPONIN-I LEVEL 68.23 ng/mL (<0.06)
[2018-03-19 06:52] LABS: BE 8.7 mmol/L (-2 to +3); HCO3 39.5 mmol/L (22.0-26.0); PO2 76.2 mmHg (75.0-100.0)
[2018-03-19 06:55] LABS: PCO2 92.1 mmHg (35.0-45.0)
--- NOTE | 2018-03-19 10:04 | CON ---
[address] [address] CONSULTATION Name: JOSE ADEBBIE DEXTERNE Room: [address] ADM IN M.R.#: [id number] Admission: 03/18/18 Attend Phys: Floyd Hair MD Discharge: Date of : 70 Report #: [id number] THIS REPORT FOR: //name// CC: FAM unknown Floyd Hair [facility] DATE OF SERVICE: 03/18/2018 HISTORY OF PRESENT ILLNESS: The patient is a 48-year-old single white male who I was asked to see in the hospital today after he complained of chest pain. The patient has an extensive past medical history. He is morbidly obese, standing 5 feet 10 inches and weighing close to 400 pounds. He is not very active. He has a history of anxiety disorder and sees a psychiatrist. He is cared for at [facility]. He has a long history of thromboembolic disease. He has had previous DVT and PE. He has been on Xarelto for about a year and a half. He continues to smoke 2 packs of cigarettes a day. Apparently 2 weeks ago, he was admitted here to [facility] and complained of chest pain. He had a borderline troponin. He had a heart catheterization by Dr. Sánchez. Apparently, no significant coronary artery disease is noted. He was told to take an aspirin a day. He was also apparently found to have valvular heart disease. He was apparently referred for transcatheter valve replacement. He has had intermittent chest pain. Today, however, he complained of shortness of breath, chest pain that went down his arm. States he became nauseated, diaphoretic. An ambulance was called. He was brought here to [facility]. ECG shows sinus rhythm with ST segment elevation of up to 5 mm in leads II, III, aVF, V3, V4, V5, V6. ST segment depression in aVL. A code STEMI was activated. PAST MEDICAL HISTORY: He has had no major surgical procedure. He has a history of diabetes, hypertension. MEDICATIONS: He is on Xarelto, aspirin, and diabetic medications. ALLERGIES: He has no known drug allergies. FAMILY HISTORY: Positive for heart disease. SOCIAL HISTORY: He is single, lives here in [place]. Smokes a pack of cigarettes a day. He rarely drinks alcohol. REVIEW OF SYSTEMS: He has COPD, is on home oxygen. No stroke, no peptic ulcer disease, no kidney disease, no cancer. He sees a psychiatrist. PHYSICAL EXAMINATION: GENERAL: Revealed an obese middle-aged male, appeared [place] [address] CONSULTATION Name: DEBBIE NARANJO Room: [address] IN M.R.#: [id number] Admission: 03/18/18 Attend Phys: Floyd Hair MD Discharge: Date of : 70 Report #: [id number]. VITAL SIGNS: His heart rate is 106, respirations are labored. HEENT: He is anicteric. Mucous members are moist. CHEST: Clear to auscultation. CARDIOVASCULAR: Regular rate and rhythm. ABDOMEN: Obese. EXTREMITIES: Had trace edema. SKIN: Cool and dry. NEUROLOGIC: Nonfocal. IMPRESSION AND RECOMMENDATIONS: 1. ST elevation myocardial infarction. Recommend cardiac catheterization. 2. Morbid obesity. 3. History of pulmonary embolism. The patient is on Xarelto. 4. Diabetes. 5. Hypertension. 6. Anxiety disorder. <ELECTRONICALLY SIGNED> By: Augustin Arellano MD, FACC 03/19/18 1004 1310 2134Davidu Arellano MD, FACC /nt
[2018-03-19 12:09] LABS: BE 6.9 mmol/L (-2 to +3); HCO3 34.9 mmol/L (22.0-26.0); pH 7.332 (7.340-7.450)
[2018-03-19 12:10] LABS: PCO2 67.4 mmHg (35.0-45.0); PO2 57.6 mmHg (75.0-100.0)
--- NOTE | 2018-03-19 14:02 | 2DMMODE ---
[place] [address] 2 D/M-MODE ECHOCARDIOGRAM Name: DEBBIE NARANJO IGNACIO Room: 003-P ADM IN [facility]#: [id number] Admission: 03/18/18 Attend Phys: Floyd Hair, Discharge: Date of : 70 Date of Service: 03/19/18 1402 Report #: [id number] THIS REPORT FOR: //name// APPROVED REPORT Study performed: 03/19/2018 09:40:01 EXAM: Comprehensive 2D, Doppler, and color-flow Echocardiogram Patient Location: In-Patient Room #: 003 Status: routine BSA: 2.82 HR: 57 bpm BP: 97/47 mmHg Rhythm: NSR Other Information Study Quality: Good Indications Acute LA 2D Dimensions IVSd: 18.61 (7-11mm) LVOT Diam: 25.68 (18-24mm) LVDd: 62.05 mm PWd: 18.92 (7-11mm) Ascending Ao: 43.11 (22-36mm) LVDs: 43.86 (25-40mm) Aortic Root: 35.39 mm Aortic Valve LVOT Max P.30 mmHg LVOT Mean P.31 mmHg LVOT Max V: 0.76 m/s LVOT Mean V: 0.53 m/s LVOT V1 VTI: 15.72 cm Pulmonary Valve PV Peak Jack.: 0.95 m/s PV Peak Gr.: 3.61 mmHg Left Ventricle Left ventricle is moderately dilated. There is global left ventricular systolic dysfunction. Moderate concentric left ventricular hypertrophy. Left ventricular systolic function is mild to moderately decreased. LVEF is 40-45%. Transmitral Doppler flow pattern [place] [address] 2 D/M-MODE ECHOCARDIOGRAM Name: JOSE ADEBBIE Room: [address] IN M.R.#: [id number] Admission: 03/18/18 Attend Phys: Floyd Hair, Discharge: Date of : 70 Date of Service: 03/19/18 1402 Report #: [id number] Right Ventricle The right ventricle is normal size. The right ventricular systolic function is normal. Atria Left atrium is dilated. The right atrium size is normal. Aortic Valve Moderate aortic valve sclerosis. Cannot rule out bicuspid morphology. Mitral Valve Mild mitral annular calcification. Tricuspid Valve The tricuspid valve is normal in structure. Pulmonic Valve The pulmonary valve is normal in structure. Great Vessels The aortic root is normal in size. Pericardium There is no pericardial effusion. <Conclusion> Left ventricle is moderately dilated. Moderate concentric left ventricular hypertrophy. Left ventricle is moderately dilated. Moderate concentric left ventricular hypertrophy. Left ventricular systolic function is mild to moderately decreased. LVEF is 40-45%. Transmitral Doppler flow pattern suggests impaired LV relaxation. Left atrium is dilated. Moderate aortic valve sclerosis. Cannot rule out bicuspid morphology. Mild mitral annular calcification. <ELECTRONICALLY SIGNED> By: Kodak Kirkland MD, FACC 03/19/18 140 01 01 Kodak Kirkland MD, FACC /INF
--- NOTE | 2018-03-19 16:05 | CON ---
[address] [address] CONSULTATION Name: DEBBIE NARANJO Room: [address] ADM IN M.R.#: [id number] Admission: 03/18/18 Attend Phys: Floyd Hair MD Discharge: Date of : 70 Report #: [id number] THIS REPORT FOR: //name// CC: Augustin Arellano MD FAM unknown Floyd Hair MD [facility] DATE OF SERVICE: 03/19/2018 ATTENDING PHYSICIAN: Floyd Hair MD LOCATION: The patient is located in ICU bed 3. INDICATION FOR CONSULTATION: Acute respiratory failure, hypoxic and hypercarbic; pulmonary edema, acute [place]. HISTORY OF PRESENT ILLNESS: The patient is a 48-year-old male with multiple medical problems who was admitted through the Emergency Room yesterday with chest pain. The patient had an 8-12 hour history of chest pain. He showed up in the Emergency Room. He had an EKG with lateral ST elevation and was taken emergently to the open hearth laborer yesterday afternoon. He had a right radial approach. He had left anterior descending disease, but no interventions were noted. He had a non-STEMI. Troponins were elevated. EKG did show lateral ST elevation. After the procedure was done, when the patient was on the table, he went into respiratory distress, respiratory failure. He was intubated emergently on the table and we had difficulty oxygenating him and ventilating him. He was on 100% and pressure control for a while. We then were able to switch him over to assist control with a tidal volume of 400 and a rate of 20 and got his pH above 7.25. PCO2 level was in the 90s after that. Previous pCO2 levels had been in the 120s before or just after intubation. The patient also has moderate aortic insufficiency noted and he has been hypertensive. He is currently sedated on the ventilator. He diuresed with Lasix. His chest x-ray and blood gases look better this morning. He is not on any pressors at this time. PAST MEDICAL HISTORY: He has a history of chronic obstructive pulmonary disease, probably untreated obstructive sleep apnea. He was oxygen dependent for COPD at 2 liters day and night. He has a history of lower extremity cellulitis. He has morbid obesity with a BMI greater than 50. He has had an ST elevation myocardial infarction, coronary artery disease and had atypical chest pain and also has had some tachycardias in the past. ALLERGIES: He has no known medical allergies. MEDICATIONS AT HOME: Included Ventolin inhaler 2 puffs p.[place].n[place] [address] CONSULTATION Name: DEBBIE NARANJONE Room: [address] IN M.R.#: [id number] Admission: 03/18/18 Attend Phys: Floyd Hair MD Discharge: Date of : 70 Report #: [id number] Symbicort 2 puffs b.i.d., oxygen 2 liters at night, Xarelto 20 mg once daily, remote history of DVT and pulmonary emboli. He is also on Lipitor 40 mg daily and loratadine 10 mg daily, gabapentin dose was 300 mg t.i.d. for neuropathy, lisinopril 40 mg at bedtime and Lasix or furosemide 1 tablet daily, also on Nasonex nasal spray, metformin dose is 500 mg b.i.d., BuSpar is 15 mg t.i.d. FAMILY HISTORY: Negative for premature cardiopulmonary disease. Positive for obesity. SOCIAL HISTORY: The patient is a 2-pack a day smoker and has a 40-50 pack year history smoker. Denies alcohol or illicit drug use. He lives at home by himself. He has a sister who lives nearby, her name is Cara Garcia from [place], [place] and she is his local next of kin. REVIEW OF SYSTEMS: A 14-point review of systems reviewed and negative except for pertinent positives noted in HPI. PHYSICAL EXAMINATION: GENERAL: A very large 48-year-old male who is intubated on the ventilator, sedated on propofol and fentanyl on the ventilator. VITAL SIGNS: Currently, blood pressure is 124/64 on no pressors at this time. Heart rate 84, respirations are 20 over backup rate of 20, and temperature is 36.6 degrees. He is 5 feet 11 inches tall, weight is 172 kg or 425 pounds, BMI is 53. HEENT: He is orally intubated at 24 cm at the lips. We will advance this another centimeter too, it is still high on today's chest x-ray. NECK: Supple, without nodes, much redundant neck tissue. No increase in jugular venous pressure. No adenopathy. CHEST: Reveals bilateral rhonchi and expiratory wheeze, less tight than what it was yesterday. CARDIOVASCULAR: Shows diminished heart tones, regular rate and rhythm without murmur, gallop or rub. Heart rate is 84. ABDOMEN: Markedly obese. No definite cellulitis noted. No hepatosplenomegaly. EXTREMITIES: Bilateral changes of cellulitis in both lower extremities and chronic venous stasis changes. Peripheral pulses 1-2+. NEUROLOGIC: He does move all fours. He is not moving to commands at least at this time. LABORATORY DATA: From today, 03/19/2018, hemoglobin is 12.4, white count 14,500, MCV is 91, platelets are 138,000. Normal differential is noted. Sodium is 139, potassium is 5.4, bicarbonate is 38, BUN is 23, creatinine is 1.4, and glucose is 157. Calcium is 8.1, magnesium is 1.9, AST is elevated at 417, ALT is elevated at 98. Troponins elevated at 68, albumin is 3.4, HDL cholesterol is low at 40 and his triglycerides are 97, cholesterol itself is 106 and LDL is 47. Initial pCO2 yesterday afternoon on the ventilator on pressure control mode showed a pO2 of 190, a pH of 7.065, pCO2 of 121, bicarbonate was 34 [place] [address] CONSULTATION Name: DEBBIE NARANJO Room: [address] ADM [place] [facility].#: [id number] Admission: 03/18/18 Attend Phys: Floyd Hair MD Discharge: Date of : 70 Report #: [id number] 93% and then this morning on 65% and tidal volume of 450, assist control of 20 and a PEEP of 7, pO2 was 76, pH was up to 7.25, pCO2 was down to 92 and a bicarbonate of 39 and a sat of 93%. Chest x-ray shows ET tube a little high. We will advance that, still within the trachea. Bilateral upper lobe infiltrates and lower lobes appear to be clearing. Heart is upper limits of normal. No pneumothorax. Infiltrates appear improved from 24 hours ago. Cardiac catheterization was noted as above with coronary artery disease, LAD lesion not amenable to a stent. No stent done. IMPRESSION: 1. Acute hypercarbic and hypoxic respiratory failure, multifactorial. 2. Pulmonary edema, combination of cardiogenic pulmonary edema, probably noncardiogenic pulmonary edema, could be related to aspiration. Outpatient pneumonia is another consideration. 3. Morbid obesity with BMI greater than 50. 4. Chronic obstructive pulmonary disease, oxygen dependent and untreated obstructive sleep apnea. 5. History of deep venous thrombosis and pulmonary emboli. CT angio negative of the chest at this time, on Eliquis at home. 6. Diabetes mellitus. 7. Chronic cellulitis of both lower extremities. PLAN: Leave him on elevated PEEP at 7, FiO2 of 65%. We will increase his tidal volume to 600 and we have another blood gas pending. We will certainly see if we can wean down his FiO2 to 40% and then once he is down to 40% we will see if we can drop his PEEP and start T-tube trials. Obviously, as an outpatient he will need full PFTs and if we can fit him into the plethysmography box and also full sleep study at some point in time to see if he will need CPAP or BiPAP at night. Obviously, we will encourage the patient discontinue smoking. He has multiple comorbidities and a life threatening illness. Prognosis is quite guarded. We will have to look into advanced directives and durable [place] attorney. I spent 35 minutes critical care time. <ELECTRONICALLY SIGNED> By: Rajiv Johnson MD 03/19/18 1605 0916 1054Acarlitos Johnson MD /rica
--- NOTE | 2018-03-19 16:26 | EKG ---
[place] [address] ELECTROCARDIOGRAM REPORT Name: DEBBIE NARANJO Room: [address] ADM IN M.R.#: [id number] Admission: 03/18/18 Attend Phys: Floyd Hair MD Discharge: Date of : 70 Report #: [id number] THIS REPORT FOR: //name// [facility] Test Date: 2018-03-19 Test Time: 08:40:29 Pat Name: DEBBIE NARANJO Department: Room: [address] Gender: M Plant Physiologist: : 1970 Requested By: Augustin Arellano Order Number: [id number] Reading MD: Kodak Kirkland Measurements Intervals [place] Rate: 57 P: 42 RI: 146 QRS: 8 QRSD: 97 T: 58 QT: 463 QTc: 451 Interpretive Statements Sinus rhythm Lateral infarct, acute (LAD) Borderline ST elevation, anterior leads Compared to ECG 03/18/2018 12:51:42 ST (T wave) deviation now present Sinus tachycardia no longer present Myocardial infarct finding still present Electronically Signed On 03-19-2018 16:26:11 ELECTRICAL CONTROL ASSEMBLER by Kodak Kirkland [email or web address] <ELECTRONICALLY SIGNED> By: Kodak Kirkland MD, FACC 03/19/18 1626 0840 0840 Kodak Kirkland MD, FAC /EPI
[2018-03-19 20:57] LABS: BE 4.5 mmol/L (-2 to +3); HCO3 31.2 mmol/L (22.0-26.0); pH 7.353 (7.340-7.450)
[2018-03-19 21:03] LABS: PCO2 57.4 mmHg (35.0-45.0)
[2018-03-20] VITALS (28 sets, daily range): BP systolic 100–132; BP diastolic 37–73
[2018-03-20 06:09] LABS: BE 7.3 mmol/L (-2 to +3); HCO3 33.3 mmol/L (22.0-26.0); pH 7.377 (7.340-7.450)
[2018-03-20 06:35] LABS: PO2 58.3 mmHg (75.0-100.0)
[2018-03-20 07:10] LABS: HEMATOCRIT 34.3 % (42.0-52.0); HEMOGLOBIN 11.1 gm/dL (14.0-18.0); MCH 29.5 pg (26.0-34.0); MCHC 32.3 g/dL (28.0-37.0); MCV 91.2 fL (80.0-100.0); MPV 11.3 fl. (7.2-11.1); RBC 3.76 mil/uL (4.50-6.00); RDW-CV 15.9 % (10.5-14.5); WBC 13.6 thou/uL (4.0-11.0)
[2018-03-20 07:23] LABS: ALBUMIN 2.3 g/dL (3.4-5.0); CREATININE 0.9 mg/dL (0.6-1.3); POTASSIUM 4.5 mmol/L (3.5-5.1); TOTAL BILIRUBIN 0.8 mg/dL (<0.1-1.0); TOTAL PROTEIN 6.8 g/dL (6.4-8.2)
[2018-03-20 07:29] LABS: CALCIUM 6.1 mg/dL (8.5-10.1)
[2018-03-20 11:24] LABS: CREATININE 1.8 mg/dL (0.6-1.3); POTASSIUM 4.4 mmol/L (3.5-5.1)
[2018-03-20 11:42] LABS: CALCIUM 8.9 mg/dL (8.5-10.1)
[2018-03-20 11:52] LABS: BE 8.2 mmol/L (-2 to +3); HCO3 36.3 mmol/L (22.0-26.0); PO2 66.2 mmHg (75.0-100.0); pH 7.333 (7.340-7.450)
[2018-03-20 11:56] LABS: PCO2 69.9 mmHg (35.0-45.0)
[2018-03-21] VITALS (14 sets, daily range): BP systolic 108–154; BP diastolic 52–94
[2018-03-21 04:09] LABS: HEMOGLOBIN 10.9 gm/dL (14.0-18.0); MCV 90.5 fL (80.0-100.0); RBC 3.76 mil/uL (4.50-6.00); RDW-CV 16.4 % (10.5-14.5); WBC 13.5 thou/uL (4.0-11.0)
[2018-03-21 04:26] LABS: ALBUMIN 3.1 g/dL (3.4-5.0); CALCIUM 8.5 mg/dL (8.5-10.1); CREATININE 1.7 mg/dL (0.6-1.3); TOTAL BILIRUBIN 1.1 mg/dL (<0.1-1.0); TOTAL PROTEIN 6.8 g/dL (6.4-8.2)
[2018-03-21 06:12] LABS: BE 7.4 mmol/L (-2 to +3); HCO3 32.4 mmol/L (22.0-26.0); PCO2 47.2 mmHg (35.0-45.0); PO2 65.3 mmHg (75.0-100.0); pH 7.454 (7.340-7.450)
[2018-03-22] VITALS (10 sets, daily range): BP systolic 124–150; BP diastolic 56–76
[2018-03-22 05:27] LABS: BE 6.8 mmol/L (-2 to +3); HCO3 32.3 mmol/L (22.0-26.0); PO2 92.6 mmHg (75.0-100.0); pH 7.424 (7.340-7.450)
[2018-03-22 05:30] LABS: PCO2 50.5 mmHg (35.0-45.0)
[2018-03-22 09:11] LABS: HEMATOCRIT 35.2 % (42.0-52.0); HEMOGLOBIN 11.5 gm/dL (14.0-18.0); MCH 29.7 pg (26.0-34.0); MCHC 32.8 g/dL (28.0-37.0); MCV 90.6 fL (80.0-100.0); MPV 11.2 fl. (7.2-11.1); NUCLEATED RBCS 0 /100WBC; PLATELET COUNT* 102 thou/uL (150-400); RBC 3.88 mil/uL (4.50-6.00); RDW-CV 16.5 % (10.5-14.5); WBC 10.4 thou/uL (4.0-11.0)
[2018-03-22 09:13] LABS: CALCIUM 8.4 mg/dL (8.5-10.1); CREATININE 1.6 mg/dL (0.6-1.3); POTASSIUM 3.9 mmol/L (3.5-5.1)
[2018-03-22 09:33] LABS: ABSOLUTE MONOCYTES 0.2 thou/uL (0.0-1.2); ABSOLUTE NEUTROPHILS 9.2 thou/uL (1.6-8.1); PLATELET ESTIMATE ADEQUATE
--- NOTE | 2018-03-22 15:52 | OP ---
[address] [address] OPERATIVE REPORT Name: DEBBIE NARANJO Room: [address] IN M.R.#: [id number] Admission: 03/18/18 Attend Phys: Floyd Hair MD Discharge: Date of : 70 Report #: [id number] THIS REPORT FOR: //name// CC: FAM unknown Floyd Hair [facility] DATE OF SERVICE: 03/21/2018 PROCEDURE: Bronchoscopy. PREOPERATIVE DIAGNOSIS: Hemoptysis, severe. DESCRIPTION OF PROCEDURE: The patient is a 48-year-old gentleman who has history of congestive heart failure, has bloody secretions. A bronchoscopy was done. A bronchoscope was advanced to the level of misti. At that level, there was no active bleeding. Then, it was advanced to the right mainstem, right upper lobe and right lower lobe. There was no active bleeding; however, with alveolar washing, there are bloody secretions. With cough, there is bloody secretion, which is more alveolar. Left side showed the same thing. Left mainstem, left upper lobe, left lower lobe were clear without endobronchial lesions without any active bleeding; however, with suctioning and washing, there is alveolar bleeding. POSTOPERATIVE DIAGNOSIS: Suspect pulmonary edema, avoid any anticoagulation. Recommend diuresis. <ELECTRONICALLY SIGNED> By: Dennis Bennett MD 03/22/18 1552 1258 [id number] Luis Bennett MD /rica
[2018-03-23] VITALS (10 sets, daily range): BP systolic 115–160; BP diastolic 53–79
[2018-03-23 05:01] LABS: BE 13.4 mmol/L (-2 to +3); HCO3 38.3 mmol/L (22.0-26.0); PO2 64.7 mmHg (75.0-100.0); pH 7.495 (7.340-7.450)
[2018-03-23 05:06] LABS: HEMATOCRIT 34.7 % (42.0-52.0); MCH 29.2 pg (26.0-34.0); MCHC 31.8 g/dL (28.0-37.0); MCV 91.6 fL (80.0-100.0); MPV 12.4 fl. (7.2-11.1); RBC 3.79 mil/uL (4.50-6.00); RDW-CV 16.2 % (10.5-14.5); WBC 11.8 thou/uL (4.0-11.0)
[2018-03-23 05:08] LABS: PCO2 50.8 mmHg (35.0-45.0)
[2018-03-23 05:47] LABS: ALBUMIN 3.2 g/dL (3.4-5.0); CALCIUM 8.5 mg/dL (8.5-10.1); CREATININE 1.6 mg/dL (0.6-1.3); MAGNESIUM 2.3 mg/dL (1.8-2.4); POTASSIUM 4.5 mmol/L (3.5-5.1)
[2018-03-23 06:05] LABS: ADENOVIRUS Negative (Negative); INFLUENZA A Negative (Negative); INFLUENZA B Negative (Negative); METAPNEUMOVIRUS Negative (Negative); PARAINFLUENZA 1 Negative (Negative); PARAINFLUENZA 2 Negative (Negative); PARAINFLUENZA 3 Negative (Negative); RHINOVIRUS Negative (Negative); RSV A Negative (Negative); RSV B Negative (Negative)
[2018-03-24] VITALS (9 sets, daily range): BP systolic 99–156; BP diastolic 45–79
[2018-03-24 04:20] LABS: HEMOGLOBIN 11.3 gm/dL (14.0-18.0); MCH 29.4 pg (26.0-34.0); MCHC 32.1 g/dL (28.0-37.0); MCV 91.4 fL (80.0-100.0); MPV 11.7 fl. (7.2-11.1); RBC 3.83 mil/uL (4.50-6.00); RDW-CV 15.9 % (10.5-14.5); WBC 10.6 thou/uL (4.0-11.0)
[2018-03-24 04:41] LABS: CALCIUM 8.5 mg/dL (8.5-10.1); CREATININE 1.5 mg/dL (0.6-1.3); MAGNESIUM 2.5 mg/dL (1.8-2.4); POTASSIUM 4.9 mmol/L (3.5-5.1); TOTAL BILIRUBIN 0.8 mg/dL (<0.1-1.0)
[2018-03-24 09:34] LABS: BE 11.2 mmol/L (-2 to +3); pH 7.325 (7.340-7.450)
[2018-03-24 09:35] LABS: PCO2 78.7 mmHg (35.0-45.0)
[2018-03-24 09:36] LABS: HCO3 40.1 mmol/L (22.0-26.0); PO2 126.7 mmHg (75.0-100.0)
[2018-03-24 14:08] LABS: URINE BILIRUBIN NEGATIVE (Negative); URINE BLOOD NEGATIVE (Negative); URINE CLARITY CLEAR; URINE COLOR STRAW; URINE GLUCOSE-RANDOM NEGATIVE (Negative); URINE KETONES NEGATIVE (Negative); URINE LEUKOCYTES NEGATIVE (Negative); URINE NITRITE NEGATIVE (Negative); URINE PROTEIN NEGATIVE (Negative); URINE UROBILINOGEN 0.2 E.U./dl (0.2-1.0)
[2018-03-24 16:08] LABS: COMPLEMENT-C4 34 mg/dL (14-44)
[2018-03-25] VITALS (8 sets, daily range): BP systolic 105–136; BP diastolic 37–62
[2018-03-25 05:24] LABS: HEMATOCRIT 36.6 % (42.0-52.0); HEMOGLOBIN 11.5 gm/dL (14.0-18.0); MCH 28.8 pg (26.0-34.0); MCHC 31.3 g/dL (28.0-37.0); MCV 91.8 fL (80.0-100.0); MPV 12.2 fl. (7.2-11.1); RBC 3.98 mil/uL (4.50-6.00); RDW-CV 16.1 % (10.5-14.5); WBC 15.2 thou/uL (4.0-11.0)
[2018-03-25 05:35] LABS: ALBUMIN 3.1 g/dL (3.4-5.0); CALCIUM 9.2 mg/dL (8.5-10.1); CREATININE 1.5 mg/dL (0.6-1.3); MAGNESIUM 2.8 mg/dL (1.8-2.4); POTASSIUM 4.5 mmol/L (3.5-5.1); TOTAL BILIRUBIN 0.7 mg/dL (<0.1-1.0); TOTAL PROTEIN 7.1 g/dL (6.4-8.2)
[2018-03-25 09:11] LABS: BE 13.8 mmol/L (-2 to +3); PO2 79.5 mmHg (75.0-100.0); pH 7.342 (7.340-7.450)
[2018-03-25 09:12] LABS: HCO3 42.4 mmol/L (22.0-26.0)
[2018-03-25 13:11] LABS: ANA INTERPRETATION Positive (Negative)
[2018-03-26 10:11] LABS: GLOMERULR BASEM MEMBRN AB 4 units (0-20)
--- NOTE | 2018-04-02 10:23 | CON ---
[address] [address] CONSULTATION Name: DEBBIE NARANJO Room: [address] IN M.R.#: [id number] Admission: 03/18/18 Attend Phys: Floyd Hair MD Discharge: 03/25/18 Date of : 70 Report #: [id number] THIS REPORT FOR: //name// CC: FAM unknown Floyd Hair [facility] The patient is a 48-year-old gentleman who was seen in the Intensive Care Unit. REASON FOR CONSULTATION: Consultation obtained by Dr. Hebert for management of diuresis and acute kidney injury. HISTORY OF PRESENT ILLNESS: The patient is a 48-year-old gentleman who was admitted to the hospital on 03/18/2018. He was admitted to the hospital with chest pain. He had been to the hospital just a few weeks ago for evaluation of chest pain, had received a coronary angiogram and apparently, no significant coronary artery disease was noted at that time. The patient was advised to take an aspirin and in light of finding valvular heart disease, he was apparently advised a transcatheter valve replacement. The patient developed chest pain, shortness of breath 2 weeks later before this admission. Came to the hospital, was diagnosed with an ST elevation DE. He was emergently taken to the [facility]. He was found to have left anterior descending disease with an acute occlusion. No interventions could be performed because the lesion could not be wired. Post-procedure, the patient developed acute onset respiratory distress, was emergently intubated and brought to the ICU. His initial x-rays suggested possible pulmonary edema and he was diuresed aggressively with Lasix after making transient improvement in the beginning, he has rapidly gone downhill over the past few days. His oxygen requirements have worsened. His chest x-ray continues to worsen. He has had hypercapnia and hypoxemia. Blood gases on admission had also already shown metabolic alkalosis, which may have suggested chronic hypercapnia. The patient had been on intermittent doses of Lasix until yesterday when he was converted to a Lasix drip. His I's and O's and his labs were reviewed over the past few days. He continues to be in negative balance. If you go with hospital weight, his weight has come down from 179 to 170, though these weights may not be entirely reliable. His urine output has remained stable and has improved with the use of the Lasix infusion. He also has been on broad spectrum antibiotics. The patient does have multiple risk factors for coronary artery disease and has significant obesity with diabetes, hypertension, and COPD with ongoing heavy history of smoking. It appears that his renal function at baseline is creatinine of 1.1-1.3. The patient did have mild acute kidney injury on admission in all likelihood secondary to the contrast. Creatinine peaked at 1.8 and has slowly been improving since that time. PAST MEDICAL HISTORY: COPD, untreated sleep apnea, oxygen dependent COPD, history of chronic lower extremity cellulitis, morbid obesity with BMI more than [facility] [address] [facility] [place] [address] CONSULTATION Name: DEBBIE NARANJO IGNACIO Room: [address] M.R.#: [id number] Admission: 03/18/18 Attend Phys: Floyd Hair MD Discharge: 03/25/18 Date of : 70 Report #: [id number], coronary artery disease, now with recent diagnosis of ST elevation DE, history of tachycardia in the past, history of anxiety. FAMILY HISTORY: Apparently negative for premature coronary artery disease. SOCIAL HISTORY: Two pack history of smoking, apparently lives at home by himself. REVIEW OF SYSTEMS: Unobtainable. The patient is sedated. PHYSICAL EXAMINATION: VITAL SIGNS: On my examination, his blood pressure today is 120/45, his pulse rate is 59, his temperature is 36.7. GENERAL: He is intubated. He is sedated. When given sedation windows, he does apparently follow some commands. He is on 100% FiO2. He is in very high PEEP. LUNGS: Markedly diminished bilaterally. ABDOMEN: He is significantly obese with chronic skin changes over his abdomen and on the knees bilaterally. EXTREMITIES: Evidence of chronic cellulitis on his legs. There is mild edema over the thigh, but no significant pitting edema, etc. noted over the lower extremities. Neck veins are difficult to discern because of the body habitus. CARDIOVASCULAR: Difficult exam but regular S1 and S2 and regular rhythm on the monitor. LABORATORY DATA: This morning, white count is 10.6, hemoglobin is 11.3, platelets are 95,000. Blood gas from yesterday, pH is 7.495, pCO2 of 50.8, pO2 of 64.7, bicarbonate of 38.3. At worst on admission, his pCO2 was 121.8. Metabolic panel: Sodium is 143, potassium is 4.9, chloride 101, bicarbonate 37, BUN is 51, creatinine is 1.5, glucose 277, calcium is 8.5, magnesium 2.5. Liver function tests grossly normal. Albumin is 3. IMAGING STUDIES: Chest x-rays were also reviewed. CT of the chest was done on 03/21/2018. This was done without contrast, which showed bilateral diffuse extensive pulmonary opacities, which could suggest either improving bilateral multifocal pneumonias versus bilateral pulmonary edema, pulmonary hemorrhage could not be ruled out. ASSESSMENT AND PLAN: 1. Acute kidney injury, recent with baseline creatinine 1.1-1.3. The patient did receive contrast following an emergent coronary angiogram for ST elevation myocardial infarction. 2. Respiratory arrest after the procedure requiring prompt intubation. Difficulty in ventilating the patient since that time, cause unknown, multifocal pneumonia versus pulmonary edema. 3. Ongoing hemoptysis. 4. History of obesity and possibly untreated sleep apnea with chronic [facility] [address] [place] [address] CONSULTATION Name: DEBBIE NARANJO Room: [address] IN [facility].#: [id number] Admission: 03/18/18 Attend Phys: Floyd Hair MD Discharge: 03/25/18 Date of : 70 Report #: [id number] hypercapnia. 5. Acute hypercapnic and hypoxic respiratory failure. 6. Morbid obesity. 7. Diabetes mellitus. PLAN: 1. Ongoing high oxygen needs with respiratory failure, hypercarbia and hypoxia. 2. Unclear what the initial cause for this would be, but baseline untreated sleep apnea and chronic hypercapnia from COPD. I definitely predisposing him to this condition. 3. Very likely, the patient had an underlying infectious process also though presently pulmonary edema definitely could be contributing to the ongoing respiratory illness in light of no significant improvement with aggressive use of antibiotics and diuresis. 4. Very possible that after 6 years of prolonged ventilation, the patient may be heading towards an ARDS situation. 5. I do not have an assessment of his central venous pressures. I have requested a central access to measure the CVP pressures, which could help us direct diuresis, placement of a [place] is being considered also. 6. Send serologies for anti-GBM and ANCA to rule out a pulmonary alveolar hemorrhage syndrome. 7. Close monitoring. 8. Continue Lasix infusion at 5 mg per hour. Monitor urine output closely. He is responding fairly well to that. All intravenous drugs should be concentrated as best as possible. 9. Close monitoring of electrolytes as necessary. Thank you for the consultation. We will continue to follow and provide necessary support. <ELECTRONICALLY SIGNED> By: Monty Dumont MD 04/02/18 1023 [id number] Dumont MD /nt
== END 2018-03-25 13:12 | disposition short-term general hospital (02) | DRG 250 ==
LOC: M.CL 12:46 → M.ERS 12:46 → M.TBA-CV 13:00 → M.ICU 13:00
PROVIDERS: Internal Medicine; Internal Medicine Nephrology; Internal Medicine Pulmonary Disease; Personal Emergency Response Attendant; ADMIT Internal Medicine
PROC: B2111ZZ Fluoroscopy of Multiple Coronary Arteries using Low Osmolar Contrast (ICD-10-PCS; principal; 2018-03-18)
PROC: 5A1955Z Respiratory Ventilation, Greater than 96 Consecutive Hours (ICD-10-PCS; principal; 2018-03-18)
PROC: 02HV33Z Insertion of Infusion Device into Superior Vena Cava, Percutaneous Approach (ICD-10-PCS; principal; 2018-03-18)
PROC: 0BH18EZ Insertion of Endotracheal Airway into Trachea, Via Natural or Artificial Opening Endoscopic (ICD-10-PCS; principal; 2018-03-18)
PROC: 02703ZZ Dilation of Coronary Artery, One Artery, Percutaneous Approach (ICD-10-PCS; principal; 2018-03-18)
PROC: B2151ZZ Fluoroscopy of Left Heart using Low Osmolar Contrast (ICD-10-PCS; principal; 2018-03-18)
PROC: 4A023N7 Measurement of Cardiac Sampling and Pressure, Left Heart, Percutaneous Approach (ICD-10-PCS; principal; 2018-03-18)
PROC: 0B9J8ZZ Drainage of Left Lower Lung Lobe, Via Natural or Artificial Opening Endoscopic (ICD-10-PCS; 2018-03-22)
PROC: 0B978ZZ Drainage of Left Main Bronchus, Via Natural or Artificial Opening Endoscopic (ICD-10-PCS; 2018-03-22)
PROC: 0B9G8ZZ Drainage of Left Upper Lung Lobe, Via Natural or Artificial Opening Endoscopic (ICD-10-PCS; 2018-03-22)
PROC: 0B938ZZ Drainage of Right Main Bronchus, Via Natural or Artificial Opening Endoscopic (ICD-10-PCS; 2018-03-22)
PROC: 0B9F8ZZ Drainage of Right Lower Lung Lobe, Via Natural or Artificial Opening Endoscopic (ICD-10-PCS; 2018-03-22)
PROC: 0B9C8ZZ Drainage of Right Upper Lung Lobe, Via Natural or Artificial Opening Endoscopic (ICD-10-PCS; 2018-03-22)
DX: I21.19 ST elevation (STEMI) myocardial infarction involving other coronary artery of inferior wall (principal); R09.2 Respiratory arrest; R65.10 Systemic inflammatory response syndrome (SIRS) of non-infectious origin without acute organ dysfunction; R04.2 Hemoptysis; R04.89 Hemorrhage from other sites in respiratory passages; Z68.43 Body mass index [BMI] 50.0-59.9, adult; L03.116 Cellulitis of left lower limb; L03.115 Cellulitis of right lower limb; N17.9 Acute kidney failure, unspecified; I13.0 Hypertensive heart and chronic kidney disease with heart failure and stage 1 through stage 4 chronic kidney disease, or unspecified chronic kidney disease; I50.42 Chronic combined systolic (congestive) and diastolic (congestive) heart failure; L40.9 Psoriasis, unspecified; J44.9 Chronic obstructive pulmonary disease, unspecified; F41.9 Anxiety disorder, unspecified; F32.9 Major depressive disorder, single episode, unspecified; E78.00 Pure hypercholesterolemia, unspecified; I25.10 Atherosclerotic heart disease of native coronary artery without angina pectoris; I35.0 Nonrheumatic aortic (valve) stenosis; E66.01 Morbid (severe) obesity due to excess calories; F17.210 Nicotine dependence, cigarettes, uncomplicated; E11.40 Type 2 diabetes mellitus with diabetic neuropathy, unspecified; G47.33 Obstructive sleep apnea (adult) (pediatric); N18.3 Chronic kidney disease, stage 3 (moderate); E11.22 Type 2 diabetes mellitus with diabetic chronic kidney disease; L57.0 Actinic keratosis; E83.51 Hypocalcemia; Z78.1 Physical restraint status; I25.2 Old myocardial infarction; Z86.711 Personal history of pulmonary embolism; Z86.718 Personal history of other venous thrombosis and embolism; Z79.899 Other long term (current) drug therapy; Z79.82 Long term (current) use of aspirin; Z79.84 Long term (current) use of oral hypoglycemic drugs; Z79.01 Long term (current) use of anticoagulants; Z82.49 Family history of ischemic heart disease and other diseases of the circulatory system; Z99.81 Dependence on supplemental oxygen; Z83.49 Family history of other endocrine, nutritional and metabolic diseases